=== PATIENT | female | born 1965 | race American Indian/Alaskan Native ===

== ENCOUNTER 2017-04-16 06:11 | Day surgery (SDC) | payer OTHER, BC ==
[2017-04-10 14:43] VITALS: BMI 37.0
[2017-04-16 06:36] VITALS: RESP 20
[2017-04-16] MEDS ORDERED: Lactated Ringer's 1,000 ML IV ONE (07:06)
--- NOTE | 2017-04-16 07:19 | CP.SDSHP ---
Same Day Surgery H & P - History Proposed Procedure: LEFT transforaminal epidural steroid injection L3-4, L4-L5 Pre-Op Diagnosis: lumbar HNP - Previous Medical/Surgical History Pain: 4.Moderate Pain - Allergies Allergies: Allergies No Known Allergies Allergy (Verified 04/10/17 14:42) - Physical Exam General Appearance: appears stated age, comfortable Vital Signs: Vital Signs 04/16/17 04/16/17 06:34 06:37 Temperature 97.8 F Pulse Rate 68 68 Respiratory 20 Rate Blood Pressure 122/78 O2 Sat by Pulse 98 Oximetry Neuro: Other (positive SLR left leg . pain limited with motor initiation. 4+/5 LLE) Short Stay Discharge - Short Stay Discharge Admitting Diagnosis/Reason for Visit: M51.06 Disposition: HOME/ ROUTINE Referrals: Jann Sagastume MD [Primary Care Provider] - Follow-up: 1 month or PRN Additional Instructions (Diet, Activity): diet as per usual Activity as tolerated avoid strenuous activity or heavy exercise Progress Note/Discharge Note with Instructions: d/c home
[2017-04-16] MEDS ORDERED: Iohexol 300 10 ML ONE (10:04)
[2017-04-16] MEDS ORDERED: Bupivacaine HCl 0.25% PF (10 ml) Inj ONE (10:04)
[2017-04-16] MEDS ORDERED: Lidocaine 1% Inj (20ml) ONE (10:04)
[2017-04-16] MEDS ORDERED: methylPREDNISolone Depo 80 mg/ml Inj ONE (10:04)
[2017-04-16] MEDS ORDERED: Propofol 10 mg/ml Inj (20 ML) ONE (10:56)
[2017-04-16] MEDS ORDERED: Lactated Ringer's 500 ML IV ONE ×2 (11:02→11:14)
[2017-04-16] MEDS ORDERED: Lactated Ringer's 1,000 ML IV SCH (11:30)
[2017-04-16] MEDS ORDERED: Oxycodone/Acetaminophen 5/325 mg Tab PO PRN (11:53)
[2017-04-16 12:09] VITALS: TEMP 98.4
[2017-04-16] MEDS ORDERED: Oxycodone/Acetaminophen 5/325 mg Tab PO ONE (12:34)
[2017-04-16 13:17] VITALS: BP 135/74; PULSE 64; O2SAT 97
--- NOTE | 2017-04-16 16:09 | RAD ---
PROCEDURE: Intraoperative Fluoroscopy. HISTORY: PAIN MANAGEMENT FINDINGS: Fluoroscopic assistance was provided for pain management. Total fluoroscopic time (continuous mode) utilized during the procedure: 21.0 seconds. Total exam DLP: (mGy): 6.21. Please refer to the
--- NOTE | 2017-04-17 11:45 | OP ---
PROCEDURE DATE: 04/16/2017 PREOPERATIVE DIAGNOSES: Lumbar spondylosis and herniated disk. POSTOPERATIVE DIAGNOSES: Lumbar spondylosis and herniated disk. PROCEDURE: Left L3-L4, L4-L5 transforaminal epidural injection. Fluoroscopy has been used. SURGEON: Bryson Warner MD. CO-SURGEON: Dr. Rhoades. PROPERTY ADJUSTER: ALYSSA Farias. DESCRIPTION OF PROCEDURE: The patient was brought to the operating room, placed in prone position, and care was taken to protect all the pressure points. Back of the lumbar area was thoroughly prepped and draped in same sterile manner. At this point, the patient was given mild IV sedation and on the left side, L3-L4, L4-L5 location, with the help of fluoroscopy, was marked and 1% lidocaine with epinephrine has been given and by using 2 spinal needles, the L3-L4, L4-L5 transforaminal area has been targeted and the needles have been placed and aspiration was done. No CSF noted. At this point, Marcaine mixed with Depo-Medrol injected into this area over the L3-L4, L4-L5 on the foramina of left side. Jasper . Patient tolerated the procedure well. After the procedure, mobilized to the recovery room in stable neurological condition. Bryson Warner MD
== END 2017-04-16 13:38 | disposition home or self-care (01) ==
LOC: H.OPSURG 06:11
PROVIDERS: ATTEND Neurological Surgery
DX: M51.06 Intervertebral disc disorders with myelopathy, lumbar region (principal)
CPT/HCPCS: 64483; 64484; J1040; J2001; J2704; J7120; Q9967

== ENCOUNTER 2017-05-14 06:28 | Inpatient (IN) | payer OTHER, BC ==
[2017-05-08 08:53] VITALS: BMI 33.6
--- NOTE | 2017-05-14 07:31 | CP.PCM.HP ---
History of Present Illness - History of Present Illness History of Present Illness: This is a 51 y/o female who presents with progressive LBP LBP associated with LLE radiculopathy and numbness from the knee to the foot. The pain is exacerbated with ambulation and sitting for prolonged periods of time requiring her to change position. She has failed conservative measures and presented for surgical opinion and intervention as her daily activities are now limited due to the severity of her symptoms. She admits to subjective weakness of her left foot. She denies bladder or bowel incontinence and gait instability. Present on Admission - Present on Admission Any Indicators Present on Admission: No Review of Systems - Constitutional Constitutional: As Per HPI - Neurological Neurological: As Per HPI Past Patient History - Past Medical History & Family History Past Medical History?: Yes - Past Social History Smoking Status: Former Smoker - CARDIAC Hx Cardiac Disorders: Yes Hx Hypertension: Yes - PULMONARY Hx Respiratory Disorders: No - NEUROLOGICAL Hx Neurological Disorder: Yes Other/Comment: NUMBNESS.TINGLING LEFT LEG AND LEFT ARM - HEENT Hx HEENT Problems: No - RENAL Hx Chronic Kidney Disease: No - ENDOCRINE/METABOLIC Hx Endocrine Disorders: No - HEMATOLOGICAL/ONCOLOGICAL Hx Blood Disorders: Yes Hx Anemia: Yes - INTEGUMENTARY Hx Dermatological Problems: No - MUSCULOSKELETAL/RHEUMATOLOGICAL Hx Musculoskeletal Disorders: Yes Hx Back Pain: Yes Other/Comment: MUSCLE WEAKNESS LEFT LEG - GASTROINTESTINAL Hx Gastrointestinal Disorders: No - GENITOURINARY/GYNECOLOGICAL Hx Genitourinary Disorders: No - PSYCHIATRIC Hx Emotional Abuse: No Hx Physical Abuse: No - SURGICAL HISTORY Hx Surgeries: Yes Other/Comment: CERVICAL DISECTOMY 2007 .GASTRIC BYPASS 2008 LESI - ANESTHESIA Hx Anesthesia: Yes Hx Anesthesia Reactions: No Hx Malignant Hyperthermia: No Has any member of the family had a problem w/ anesthesia?: No Meds Allergies/Adverse Reactions: Allergies Allergy/AdvReac Type Severity Reaction Status Date / Time No Known Allergies Allergy Verified 05/14/17 07:20 Physical Exam - Neurological Exam Additional comments: A&Ox3 CN intact MENDOZA LLE: DF and PF 4/5 , quad 4+/5 RLE: 5/5 throughout sensation diminished to LT on left from knee to foot patellar DTR 1+ BL gait: antalgic Results - Vital Signs Recent Vital Signs: Last Vital Signs Temp 98.3 F 05/14/17 07:09 Pulse 71 01/10/18 07:13 Resp 18 05/14/17 07:09 BP 130/83 05/14/17 07:09 Pulse Ox 96 05/14/17 07:09 - Labs Labs: Laboratory Results - last 24 hr 05/14/17 06:40 BBK History Checked No verified bt - Imaging and Cardiology MRI L spine Additional comment: LUmbar HNP L4-L5 with neuroforaminal stenosis Assessment & Plan - Assessment and Plan (Free Text) Assessment: Lumbar HNP Plan: Patient presented for surgical opinion and possible intervention. Imaging reviewed and explained to patient. Patient has failed conservative treatment and a lumbar laminectomy, possible microdiscectomy at L4-L5 was proposed. Risks and benefits explained with risks such as CSF leak, weakness, numbness, failure of surgery and /or need for further surgery described. All questions answered and patient expressed understanding and wishes to proceed with procedure.
[2017-05-14] MEDS ORDERED: Bupivacaine HCl 0.25% PF (30 ml) Inj ONE (08:03)
[2017-05-14] MEDS ORDERED: Bacitracin Ointment 30 GM TUBE ONE (08:04)
[2017-05-14] MEDS ORDERED: APROTININ/FIBRINOGEN(TISSEEL) ONE (08:04)
[2017-05-14] MEDS ORDERED: Absorbable Gelatin Sponge Size 12-7 ONE (08:04)
[2017-05-14] MEDS ORDERED: Absorbable Gelatin Sponge Size 100 ONE (08:42)
[2017-05-14] MEDS ORDERED: Lactated Ringer's 1,000 ML IV ONE (09:30)
[2017-05-14] MEDS ORDERED: Lidocaine 4% (Laryng-O-Jet) Kit MM ONE (09:33)
[2017-05-14] MEDS ORDERED: Propofol 10 mg/ml Inj (20 ML) ONE (09:33)
[2017-05-14] MEDS ORDERED: Midazolam 2 MG/2 ML VIAL ONE (09:33)
[2017-05-14] MEDS ORDERED: Rocuronium 10 mg/ml (5 ml) ONE (09:47)
[2017-05-14] MEDS ORDERED: Thrombin Topical 5,000 Int Units Spray Kit TOP ONE ×2 (10:00)
[2017-05-14] MEDS ORDERED: HEMOSTATIC MATRIX 10 ML DIS.NEEDLE TOP ONE (10:00)
[2017-05-14] MEDS ORDERED: Lidocaine 2% w Epi 1:100,000 Inj IJ ONE (10:00)
[2017-05-14] MEDS ORDERED: Absorbable Gelatin Sponge Size 12-7 TP ONE (10:00)
[2017-05-14] MEDS ORDERED: Dexamethasone 4 mg/1 ml ONE (10:23)
--- NOTE | 2017-05-14 11:35 | PCM.SURG1 ---
Surgeon's Initial Post Op Note - Surgeon's Notes Surgeon: Bryson Warner MD Airfield Services Officer: Shahzad SHAH Type of Anesthesia: General Endo Anesthesia Administered By: Yosvany Webster MD Pre-Operative Diagnosis: lumbar herniated disc Operative Findings: as above Post-Operative Diagnosis: same Operation Performed: LEFT lumbar laminotomy L4-L5 Specimen/Specimens Removed: none Estimated Blood Loss: EBL {In ML}: 40 Blood Products Given: N/A Drains Used: No Drains Date of Surgery/Procedure: 05/14/17 Time of Surgery/Procedure: 11:00
[2017-05-14] MEDS: HYDROmorphone 0.5 mg/0.5 ml ISec IVP PRN ×3 (12:20→13:20)
--- NOTE | 2017-05-14 12:25 | CP.PCM.HP ---
History of Present Illness - History of Present Illness History of Present Illness: 51 yr old F presented to same day surgery for scheduled laminotomy of L4-L5 s/p failed conservative treatment and prior lumbar laminectomy. Patient reports persistent lumbar back pain interfering with her daily activities, left lower extremity pain, numbness and weakness. PMHx includes HTN, cervical back pain s/ p cervical fusion, morbid obesity s/p gastric bypass. Patient seen and examined at bedside with attending- Dr. Nevarez. PMD: Dr. Sagastume PMHx: HTN, cervical back pain s/p cervical fusion, morbid obesity s/p gastric bypass SurgHx: cervical fusion, gastric bypass, lumbar laminectomy FMHx: unknown SocHx: denies smoking cigarettes, denies drugs, reports occasional Etoh consumption limited to 1 drink Medications: Norvasc 10mg PO QD, Valsartan 360mg PO QD, Vit D3 50,000 units PO once a week, Vit B12 1000 mcg SL QD, Ferrous sulfate 325mg PO QD, Multivitamin 1 tab PO QD, Ibuprofen 600mg PO Q6 PRN pain Allergies: NKDA Present on Admission - Present on Admission Any Indicators Present on Admission: No History of DVT/PE: No History of Uncontrolled Diabetes: No Urinary Catheter: No Decubitus Ulcer Present: No Review of Systems - Review of Systems All systems: reviewed and no additional remarkable complaints except (for what is mentioned in the HPI) - Constitutional Constitutional: absent: Chills, Fever - EENT Eyes: absent: Blurred Vision, Change in Vision Ears: absent: Disequilibrium, Dizziness Nose/Mouth/Throat: absent: Nasal Congestion, Nasal Discharge - Cardiovascular Cardiovascular: absent: Chest Pain, Dyspnea - Respiratory Respiratory: absent: Cough, Hemoptysis - Gastrointestinal Gastrointestinal: absent: Abdominal Pain, Nausea, Vomiting - Genitourinary Genitourinary: absent: Difficulty Urinating, Dysuria - Menstruation Menstruation: Post Menopausal (last LMP 2 years ago) - Musculoskeletal Musculoskeletal: Muscle Weakness (LLE), Numbness (LLE), Radiating Pain into Limb (lumbar pain radiating to LLE) - Neurological Neurological: Radicular Pain (to LLE). absent: Disequilibrium, Headaches - Psychiatric Psychiatric: absent: Homicidal Ideation, Suicidal Ideation - Endocrine Endocrine: absent: Polydipsia, Polyphagia, Polyuria - Hematologic/Lymphatic Hematologic: absent: Easy Bleeding, Easy Bruising Past Patient History - Past Medical History & Family History Past Medical History?: Yes - Past Social History Smoking Status: Former Smoker - CARDIAC Hx Cardiac Disorders: Yes Hx Hypertension: Yes - PULMONARY Hx Respiratory Disorders: No - NEUROLOGICAL Hx Neurological Disorder: Yes Other/Comment: NUMBNESS.TINGLING LEFT LEG AND LEFT ARM - HEENT Hx HEENT Problems: No - RENAL Hx Chronic Kidney Disease: No - ENDOCRINE/METABOLIC Hx Endocrine Disorders: No - HEMATOLOGICAL/ONCOLOGICAL Hx Blood Disorders: Yes Hx Anemia: Yes - INTEGUMENTARY Hx Dermatological Problems: No - MUSCULOSKELETAL/RHEUMATOLOGICAL Hx Musculoskeletal Disorders: Yes Hx Back Pain: Yes Other/Comment: MUSCLE WEAKNESS LEFT LEG - GASTROINTESTINAL Hx Gastrointestinal Disorders: No - GENITOURINARY/GYNECOLOGICAL Hx Genitourinary Disorders: No - PSYCHIATRIC Hx Emotional Abuse: No Hx Physical Abuse: No - SURGICAL HISTORY Hx Surgeries: Yes Other/Comment: CERVICAL DISECTOMY 2006 .GASTRIC BYPASS 2008 LESI - ANESTHESIA Hx Anesthesia: Yes Hx Anesthesia Reactions: No Hx Malignant Hyperthermia: No Has any member of the family had a problem w/ anesthesia?: No Meds Allergies/Adverse Reactions: Allergies Allergy/AdvReac Type Severity Reaction Status Date / Time No Known Allergies Allergy Verified 05/14/17 07:20 Physical Exam - Constitutional Appears: Non-toxic - Head Exam Head Exam: ATRAUMATIC, NORMOCEPHALIC - Eye Exam Eye Exam: EOMI, PERRL - ENT Exam ENT Exam: Mucous Membranes Moist - Neck Exam Neck exam: Positive for: Full Rom. Negative for: Lymphadenopathy - Respiratory Exam Respiratory Exam: Clear to Auscultation Bilateral, NORMAL BREATHING PATTERN - Cardiovascular Exam Cardiovascular Exam: REGULAR RHYTHM, +S1, +S2 - GI/Abdominal Exam GI & Abdominal Exam: Normal Bowel Sounds, Soft. absent: Tenderness - Extremities Exam Extremities exam: Positive for: full ROM. Negative for: pedal edema - Neurological Exam Neurological exam: Alert, CN II-XII Intact, Oriented x3 - Psychiatric Exam Psychiatric exam: Normal Affect, Normal Mood - Skin Skin Exam: Dry, Intact, Warm Results - Vital Signs Recent Vital Signs: Last Vital Signs Temp 96.9 F L 05/14/17 11:35 Pulse 72 05/14/17 12:20 Resp 18 05/14/17 12:20 BP 143/68 05/14/17 12:20 Pulse Ox 100 05/14/17 12:20 - Labs Labs: Laboratory Results - last 24 hr 05/14/17 05/14/17 05/14/17 06:40 07:25 08:30 PT 11.0 INR 1.0 APTT 26.0 Blood Type B POSITIVE Blood Type Confirm B POSITIVE Antibody Screen Negative BBK History Checked No verified bt Assessment & Plan - Assessment and Plan (Free Text) Assessment: 51 yr old F presented to same day surgery for scheduled laminotomy of L4-L5 s/p failed conservative treatment and prior lumbar laminectomy. Patient seen and examined at bedside with attending- Dr. Nevarez. Patient is stable for surgery. -will resume home medications after surgery -monitor BP -admit to telemetry for medical management s/p surgery - Date & Time Date: 05/14/17 Time: 09:55
[2017-05-14] MEDS ORDERED: Ergocalciferol 50,000 Intl Units Cap PO SCH (14:30)
[2017-05-14] MEDS: Oxycodone/Acetaminophen 5/325 mg Tab PO PRN ×2 (16:10→21:33)
[2017-05-14] MEDS: ceFAZolin 1 GM in Sodium Chloride 0.9% 100 ML IVPB SCH (16:13)
[2017-05-14] MEDS ORDERED: Docusate-Senna 50 mg-8.6 mg Tab PO SCH (22:00)
[2017-05-15] MEDS: ceFAZolin 1 GM in Sodium Chloride 0.9% 100 ML IVPB SCH (01:06)
[2017-05-15] MEDS ORDERED: Oxycodone/Acetaminophen 5/325 mg Tab PO ONE (02:46)
--- NOTE | 2017-05-15 08:42 | OP ---
PROCEDURE DATE: 05/14/2017 PREOPERATIVE DIAGNOSIS: Lumbar spondylosis. POSTOPERATIVE DIAGNOSIS: Lumbar spondylosis. PROCEDURE: Left L4-L5 hemilaminotomy, medial facetectomy, and decompression. Fluoroscopy had been used for the procedure. SURGEON: Bryson Warner MD. PITCH WORKER: Shahzad Boo. Shahzad Boo is a physician speech language assistant, who helped me perform the surgery from the beginning to the end. DESCRIPTION OF PROCEDURE: patient was brought to the operating room, anesthetized with general endotracheal anesthesia, placed in a prone position on a Hayder table. Care was taken to protect all pressure points. Back of the lumbar area thoroughly prepped and draped in the sterile manner after marking the skin incisions for lumbar lami at L4-L5. After prepping and draping the area, skin had been incised. Bleeding skins had been controlled with bipolar instructional supervisor. Using a Bovie instructional supervisor, paraspinal muscles had been detached from attachments of spinous process, lamina of L4-L5 on the left side. Adwoa retractor had been applied and fluoroscopy had been used in order to confirm this level. After confirming the level, by using a high-speed drill, the lamina of the L4-L5, medial part of the L4-L5 had been drilled. Drilling was continued until the top and bottom of the ligamentum flavum was seen. Drilling was also continued on the middle part of the facets until the turn of the ligamentum flavum had been seen. Once this had been done, thinned out the lamina including the medial part of the facets and ligamentum flavum had been removed, decompressing this area. After that, hemostasis was best achieved. Fascia across the interspinous ligament and spinous process with 1-Vicryl, subcutaneous tissue with 3 Vicryl. Skin had been closed with intradermal 3 Vicryl stitches. The patient tolerated the procedure. After procedure, mobilized to recovery room in stabilized condition. Bryson Warner MD
[2017-05-15] MEDS ORDERED: Multivitamin With Minerals Tab PO SCH (09:00)
[2017-05-15] MEDS: Oxycodone/Acetaminophen 5/325 mg Tab PO PRN ×2 (09:50→14:18)
[2017-05-15 12:47] VITALS: BP 111/69; PULSE 65; RESP 20; TEMP 98.4; O2SAT 99
--- NOTE | 2017-05-15 14:16 | CP.PCM.DIS ---
Provider - Provider Date of Admission: 05/14/17 11:42 Attending physician: Daniel Nevarez MD Primary care physician: Jann Sagastume MD Consults: Dr. Warner-neurosurgery Time Spent in preparation of Discharge (in minutes): 30 Diagnosis - Discharge Diagnosis (1) S/P lumbar laminectomy Status: Acute Priority: Low (2) Lumbar spondylolysis Status: Chronic Priority: Low Hospital Course - Lab Results Lab Results: Most Recent Lab Values PT 11.0 Seconds (9.8-13.1) 05/14/17 07:25 INR 1.0 (0.9-1.2) 05/14/17 07:25 APTT 26.0 Seconds (25.6-37.1) 05/14/17 07:25 Blood Type B POSITIVE 05/14/17 06:40 Blood Type Confirm B POSITIVE 05/14/17 08:30 Antibody Screen Negative 05/14/17 06:40 BBK History Checked No verified bt 05/14/17 06:40 - Hospital Course Hospital Course: 51 yr old F POD #1 s/p scheduled laminotomy of L4-L5 s/p failed conservative treatment and prior lumbar laminectomy. Patient seen and examined at bedside with attending-Dr. Nevarez. Patient denies SOB, chest pain, weakness or dizziness. Is able to ambulate and lumbar pain is moderate and controlled. Patient is stable for discharge with instructions to follow up with Dr. Warner as scheduled and with her PMD Dr. Sagastume within 1 week. ER precautions reviewed. - Date & Time of H&P Date of H&P: 05/14/17 Time of H&P: 12:25 Discharge Exam - Head Exam Head Exam: ATRAUMATIC, NORMOCEPHALIC - Eye Exam Eye Exam: EOMI - ENT Exam ENT Exam: Mucous Membranes Moist - Respiratory Exam Respiratory Exam: NORMAL BREATHING PATTERN - Cardiovascular Exam Cardiovascular Exam: REGULAR RHYTHM, +S1, +S2 - GI/Abdominal Exam GI & Abdominal Exam: Normal Bowel Sounds, Soft - Extremities Exam Extremities exam: full ROM - Neurological Exam Neurological exam: Alert, CN II-XII Intact, Oriented x3 - Psychiatric Exam Psychiatric exam: Normal Affect, Normal Mood - Skin Skin Exam: Dry, Normal Color, Warm Discharge Plan - Discharge Medications Prescriptions: Cyclobenzaprine [Flexeril] 5 mg PO TID PRN #90 tab PRN Reason: Muscle Spasm Docusate [Colace] 100 mg PO BID #60 cap oxyCODONE/Acetaminophen [Percocet 5/325 mg Tab] 1 tab PO Q4 PRN #20 tab PRN Reason: Pain, Severe (8-10) - Follow Up Plan Condition: GOOD Disposition: HOME/ ROUTINE Patient education suggested?: Yes Referrals: Jann Sagastume MD [Primary Care Provider] - Bryson Warner MD [Staff Provider] - Clinical Quality Measures - Date & Time of Discharge Summary Date of Discharge Summary: 05/15/17 Time of Discharge Summary: 14:21
--- NOTE | 2017-05-15 19:28 | RAD ---
PROCEDURE: Intraoperative Fluoroscopy. HISTORY: LUMBAR LAMINECTOMY FINDINGS: Fluoroscopic assistance was provided for lumbar laminectomy. Please fluoro time was utilized with a curative radiation dose of 3.44 mGy.
== END 2017-05-15 16:15 | disposition home or self-care (01) | DRG 517 ==
LOC: H.OPSURG 06:28 → H.TEL 11:42
PROVIDERS: ADMIT Family Medicine; ATTEND Family Medicine
PROC: 01NB0ZZ Release Lumbar Nerve, Open Approach (ICD-10-PCS; principal; 2017-05-14 11:45)
DX: M47.26 Other spondylosis with radiculopathy, lumbar region (principal); E66.01 Morbid (severe) obesity due to excess calories; I10 Essential (primary) hypertension; Z98.84 Bariatric surgery status; Z68.33 Body mass index [BMI] 33.0-33.9, adult; Z87.891 Personal history of nicotine dependence